=== PATIENT | male | born 1930 | race Caucasian/White ===

== ENCOUNTER 2017-04-19 21:40 | Emergency (ER) | payer MEDICARE, BC ==
[2017-04-19 22:23] LABS: BASOPHILS % (AUTO) 1 % (0-3); EOSINOPHILS % (AUTO) 2 % (0-9); HEMATOCRIT 43 % (39-53); MEAN CORPUSCULAR HGB CONC 32.6 gm/dl (32.0-36.0); MEAN CORPUSCULAR VOLUME 91 fL (80-100); MONOCYTES % (AUTO) 5.1 % (0-12); NEUTROPHILS % (AUTO) 81.2 % (37-80)
[2017-04-19 22:31] VITALS: RESP 18; TEMP 98.4
[2017-04-19 22:35] VITALS: O2SAT 97
[2017-04-19 22:47] LABS: ALBUMIN 3.7 gm/dl (3.4-5.0); CALCIUM 9.1 mg/dl (8.5-10.1); MAGNESIUM 2.2 mg/dl (1.8-2.4); POTASSIUM 3.8 mMol/L (3.5-5.1); THYROID STIMULATING HORMONE 3.726 uIU/ml (0.358-3.740)
[2017-04-19 22:53] LABS: APPEARANCE,URINE Cloudy; BILIRUBIN,URINE NEGATIVE (NEGATIVE); GLUCOSE, URINE (UA) TRACE (NEGATIVE); KETONES,URINE TRACE (NEGATIVE); LEUKOCYTE ESTERASE ,URINE NEGATIVE (NEGATIVE); NITRATE,URINE NEGATIVE (NEGATIVE); OCCULT BLOOD,URINE 3+ (NEG-TRACE)
[2017-04-19 23:04] LABS: COLOR,URINE RED; RBC,URINE TNTC (0-3AV/HPF); WBC,URINE 0-3 (0-5AV/HPF)
[2017-04-20] MEDS ORDERED: CIPROFLOXACIN HCL 500 MG TAB PO SCH (00:15)
[2017-04-20 00:40] VITALS: BP 138/83; PULSE 75
== END 2017-04-20 00:31 | disposition home or self-care (01) | DRG 948 ==
LOC: SUPCPDRO 21:40 → ED 21:40
DX: R53.1 Weakness (principal); E86.0 Dehydration; R31.29 Other microscopic hematuria; N41.1 Chronic prostatitis; R35.0 Frequency of micturition
CPT/HCPCS: 80053; 81001; 82550; 83735; 84443; 85025; 87088; 99283